=== PATIENT | female | born 1935 | race Hispanic/Latino ===

== ENCOUNTER 2019-10-30 12:13 | Inpatient (IN) | payer OTHER ==
[~2019-10-30] VITALS: Ht 165.1 cm; Wt 83.8 kg
[2019-10-30 14:10] LABS: BASOPHILS % (AUTO) 0.1 % (0.0-5.0); EOSINOPHILS % (AUTO) 0.4 % (0.0-8.0); HEMATOCRIT 35.2 % (36-48); LYMPHOCYTES % (AUTO) 12.3 % (21.0-51.0); MEAN CORPUSCULAR HEMOGLOBIN 29.5 pg (27.0-33.0); MEAN CORPUSCULAR HGB CONC 33.8 g/dL (32.0-36.0); MEAN CORPUSCULAR VOLUME 87.1 fL (79-99); MONOCYTES % (AUTO) 6.9 % (3.0-13.0); NEUTROPHILS % (AUTO) 79.7 % (40.0-77.0); PLATELET COUNT (AUTO) 277 K/uL (130-400); RED BLOOD CELL COUNT(AUTO) 4.04 MIL/uL (4.00-5.50); RED CELL DISTRIBUTION WIDTH 13.3 % (11.0-15.5); WHITE BLOOD COUNT (AUTO) 7.8 K/uL (4.8-10.8)
[2019-10-30 14:23] LABS: CREATININE 0.7 mg/dL (0.5-1.5)
[2019-10-30 14:28] LABS: ALBUMIN 3.1 g/dL (3.5-5.0); BILIRUBIN,TOTAL 0.4 mg/dL (0.2-1.0); TOTAL PROTEIN, SERUM 6.9 g/dL (6.0-8.3)
[2019-10-30 15:46] LABS: APPEARANCE,URINE Clear (CLEAR); BILIRUBIN,URINE Negative (NEGATIVE); COLOR,URINE Yellow (YELLOW); GLUCOSE, URINE (UA) Negative (NEGATIVE); KETONES,URINE Trace mg/dL (NEGATIVE); LEUKOCYTE ESTERASE ,URINE Moderate (NEGATIVE); NITRATE,URINE Negative (NEGATIVE); OCCULT BLOOD,URINE Negative (NEGATIVE); PROTEIN,URINE Negative (NEGATIVE)
[2019-10-30 16:00] LABS: RBC,URINE 0-1 /HPF (0-1)
[2019-10-30 16:01] LABS: BACTERIA,URINE Rare /HPF (None Seen); MUCUS,URINE Rare LPF (None Seen); SQUAMOUS EPITHELIAL CELL,UR Few /HPF (0-2)
[2019-10-30] MEDS ORDERED: CEFTRIAXONE SODIUM 1 GM ONE ×2 (16:39→19:42)
[2019-10-30] MEDS ORDERED: FAMOTIDINE/PF 20 MG/2 ML VIAL IV ONE (16:40)
[2019-10-30] MEDS ORDERED: ERGOCALCIFEROL (VITAMIN D2) 50,000 UNIT CAPSULE PO ONE (18:30)
[2019-10-30] MEDS: CEFTRIAXONE SODIUM 1 GM IVP SCH (18:30)
[2019-10-30] MEDS ORDERED: ERGOCALCIFEROL (VITAMIN D2) 50,000 UNIT CAPSULE ONE (19:12)
[2019-10-30] MEDS ORDERED: METHYLPREDNISOLONE SOD SUCC 40MG/ML 1ML ONE ×2 (19:12→20:00)
[2019-10-30] MEDS ORDERED: DOXYCYCLINE 100MG+NS 250ML 250 ML IV ONE (19:13)
[2019-10-30 19:46] LABS: HEMATOCRIT 33.4 % (36-48); LYMPHOCYTES % (AUTO) 20.3 % (21.0-51.0); MEAN CORPUSCULAR HEMOGLOBIN 29.2 pg (27.0-33.0); MEAN CORPUSCULAR HGB CONC 34.1 g/dL (32.0-36.0); MEAN CORPUSCULAR VOLUME 85.6 fL (79-99); MONOCYTES % (AUTO) 8.3 % (3.0-13.0); PLATELET COUNT (AUTO) 263 K/uL (130-400); RED CELL DISTRIBUTION WIDTH 13.2 % (11.0-15.5); WHITE BLOOD COUNT (AUTO) 5.2 K/uL (4.8-10.8)
[2019-10-30 19:58] LABS: HEMOGLOBIN A1C 7.7 % (4.0-6.0)
[2019-10-30 20:05] LABS: ALBUMIN 2.8 g/dL (3.5-5.0); BILIRUBIN,TOTAL 0.4 mg/dL (0.2-1.0); CREATININE 0.7 mg/dL (0.5-1.5); POTASSIUM 3.9 mmol/L (3.5-5.1); TOTAL PROTEIN, SERUM 6.3 g/dL (6.0-8.3)
[2019-10-30] MEDS: DOXYCYCLINE HYCLATE 100 MG TABLET PO SCH (21:00)
[2019-10-30] MEDS: METHYLPREDNISOLONE SOD SUCC 40MG/ML 1ML IVP SCH (21:00)
[2019-10-30 22:10] VITALS: BP 152/86
--- NOTE | 2019-10-30 22:10 | NUR ---
ADMISSION PT TRANS FROM ED VIA BED. PT A/A/OX1. PT REPEATEDLY STATES SHE NEEDS TO "GO TO THE HOSPITAL", WHEN REDIRECTED THAT SHE IS IN THE HOSPITAL SHE GETS AGITATED. PT VS STABLE AT THIS TIME, ON RA. NO DISTRESS OR C/O PAIN. PT ORIENTED TO CALL LIGHT- REINFORCEMENT NEEDED. CALL LIGHT LEFT IN REACH ON BED. BED ALARM ON. WILL CONT TO CLOSELY MONITOR PT.
--- NOTE | 2019-10-30 22:54 | NUR ---
CONSULT PAGED [facility]ED, DR. BARKSDALE IS THE SCHEDULED ONCALL PHYSICIAN. NO ANSWER AT THIS TIME, A VOICEMAIL WAS LEFT. PENDING CALL BACK.
--- NOTE | 2019-10-30 23:05 | NUR ---
UPDATED FAMILY CALLED TO UPDATE GABBI, PT'S SISTER AT [phone]. INFORMED GABBI THAT THE PT WAS IN ROOM 331 AND WAS GOING TO BE ADMITTED. WHEN ASKED ABOUT THE HOME MEDICATIONS, SHE WAS ONLY ABLE TO PROVIDE ME WITH THE NAME OF METFORMIN AND AZITHROMYCIN. SIMON ALEXANDRA IS THE PRIMARY PHYSICIAN. NO OTHER INFORMATION WAS PROVIDED AT THIS TIME.
[2019-10-30 23:57] VITALS: BP 155/108
[2019-10-31 03:20] VITALS: BP 158/100
[2019-10-31] MEDS ORDERED: LORAZEPAM 2 MG/ML 1 ML VIAL ONE (05:14)
[2019-10-31] MEDS ORDERED: LORAZEPAM 2 MG/ML 1 ML VIAL IM ONE (05:15)
[2019-10-31 06:12] LABS: BASOPHILS % (AUTO) 0.2 % (0.0-5.0); HEMATOCRIT 35.8 % (36-48); LYMPHOCYTES % (AUTO) 12.1 % (21.0-51.0); MEAN CORPUSCULAR HEMOGLOBIN 29.5 pg (27.0-33.0); MEAN CORPUSCULAR HGB CONC 34.6 g/dL (32.0-36.0); MONOCYTES % (AUTO) 2.1 % (3.0-13.0); PLATELET COUNT (AUTO) 304 K/uL (130-400); RED BLOOD CELL COUNT(AUTO) 4.21 MIL/uL (4.00-5.50); RED CELL DISTRIBUTION WIDTH 13.1 % (11.0-15.5); WHITE BLOOD COUNT (AUTO) 4.8 K/uL (4.8-10.8)
[2019-10-31] MEDS: CEFTRIAXONE SODIUM 1 GM IVP SCH ×2 (06:26→18:26)
[2019-10-31 08:00] VITALS: BP 168/78
[2019-10-31 08:40] LABS: LACTATE DEHYDROGENASE 282 U/L (81-234)
[2019-10-31] MEDS: METHYLPREDNISOLONE SOD SUCC 40MG/ML 1ML IVP SCH ×2 (08:53→13:53)
[2019-10-31] MEDS: ASCORBIC ACID 500 MG TAB PO SCH (08:53)
[2019-10-31] MEDS: DOXYCYCLINE HYCLATE 100 MG TABLET PO SCH ×2 (08:53→20:27)
[2019-10-31 12:00] VITALS: BP 159/73
[2019-10-31] MEDS: ZINC SULFATE 220 CAPSULE PO SCH (12:00)
[2019-10-31] MEDS ORDERED: CEFTRIAXONE SODIUM 1 GM IVP SCH (12:45)
[2019-10-31 13:01] LABS: HEMATOCRIT 40.7 % (36-48)
[2019-10-31 16:00] VITALS: BP 139/89
[2019-10-31] MEDS ORDERED: ENOXAPARIN SODIUM 30 MG/0.3 ML SQ SCH (17:00)
--- NOTE | 2019-10-31 17:29 | NUR ---
cm note call made to pts sister hailey aguilar [phone]. states pt resides at home with her, requires assist with her bath and adls. ambulates with walker very few steps, primarily chair bound. pending w/c ordered by per pcp. has provider 5hrs daily. states dc plan is back to home, but is open to snf level of care if md orders, has been at a facility before, but unable to recall name. Addendum: 10/31/19 at 1735 by RICHA ZHONG CM Amended: Links added.
[2019-10-31 20:00] VITALS: BP 158/84
[2019-10-31 20:36] LABS: HEMATOCRIT 35.7 % (36-48)
[2019-11-01] VITALS: BP 151/83
[2019-11-01 04:00] VITALS: BP 119/83
[2019-11-01 06:34] LABS: BASOPHILS % (AUTO) 0.1 % (0.0-5.0); EOSINOPHILS % (AUTO) 1.7 % (0.0-8.0); HEMATOCRIT 34.2 % (36-48); LYMPHOCYTES % (AUTO) 14.4 % (21.0-51.0); MEAN CORPUSCULAR HEMOGLOBIN 29.2 pg (27.0-33.0); MEAN CORPUSCULAR HGB CONC 34.2 g/dL (32.0-36.0); MEAN CORPUSCULAR VOLUME 85.3 fL (79-99); MONOCYTES % (AUTO) 7.6 % (3.0-13.0); NEUTROPHILS % (AUTO) 75.7 % (40.0-77.0); PLATELET COUNT (AUTO) 344 K/uL (130-400); RED BLOOD CELL COUNT(AUTO) 4.01 MIL/uL (4.00-5.50); RED CELL DISTRIBUTION WIDTH 13.1 % (11.0-15.5); WHITE BLOOD COUNT (AUTO) 8.4 K/uL (4.8-10.8)
[2019-11-01 06:59] LABS: LACTATE DEHYDROGENASE 228 U/L (81-234)
[2019-11-01 08:00] VITALS: BP 165/76
[2019-11-01] MEDS ORDERED: ENOXAPARIN SODIUM 30 MG/0.3 ML SQ SCH (09:00)
[2019-11-01] MEDS: DOXYCYCLINE HYCLATE 100 MG TABLET PO SCH ×2 (09:38→20:52)
[2019-11-01] MEDS: ASCORBIC ACID 500 MG TAB PO SCH (09:38)
[2019-11-01] MEDS: DEXAMETHASONE SOD PHOSPHATE 4 MG/ML 1ML VIAL IVP SCH (09:39)
[2019-11-01] MEDS: ENOXAPARIN SODIUM 40 MG/0.4 ML SYRINGE SQ SCH (09:39)
[2019-11-01 10:17] LABS: BASOPHILS % (AUTO) 0.1 % (0.0-5.0); HEMATOCRIT 35.2 % (36-48); LYMPHOCYTES % (AUTO) 14.6 % (21.0-51.0); MEAN CORPUSCULAR HEMOGLOBIN 29.1 pg (27.0-33.0); MEAN CORPUSCULAR HGB CONC 33.8 g/dL (32.0-36.0); MEAN CORPUSCULAR VOLUME 86.1 fL (79-99); MONOCYTES % (AUTO) 7.6 % (3.0-13.0); NEUTROPHILS % (AUTO) 77.2 % (40.0-77.0); PLATELET COUNT (AUTO) 353 K/uL (130-400); RED BLOOD CELL COUNT(AUTO) 4.09 MIL/uL (4.00-5.50); RED CELL DISTRIBUTION WIDTH 13.3 % (11.0-15.5); WHITE BLOOD COUNT (AUTO) 9.4 K/uL (4.8-10.8)
[2019-11-01 10:27] LABS: CREATININE 0.7 mg/dL (0.5-1.5); POTASSIUM 3.7 mmol/L (3.5-5.1)
[2019-11-01 10:33] LABS: BILIRUBIN,TOTAL 0.4 mg/dL (0.2-1.0); CRP QUANTITATIVE 24.4 mg/L (0.00-9.0); TOTAL PROTEIN, SERUM 6.8 g/dL (6.0-8.3)
[2019-11-01 11:00] VITALS: BP 175/70
[2019-11-01 12:44] LABS: HEMATOCRIT 35.9 % (36-48)
[2019-11-01] MEDS: ZINC SULFATE 220 CAPSULE PO SCH (12:53)
[2019-11-01 16:00] VITALS: BP 140/78
[2019-11-01] MEDS ORDERED: DEXTROSE 50%-WATER 50 ML DISP.SYRIN IV PRN (16:00)
[2019-11-01] MEDS ORDERED: GLUCAGON 1MG KIT 1 MG ML IM PRN (16:00)
[2019-11-01] MEDS: INSULIN HUMULIN R 100 UNIT/ML 3ML SQ SCH ×2 (16:44→20:52)
[2019-11-01 18:31] LABS: HEMATOCRIT 34.7 % (36-48)
[2019-11-01] MEDS: CEFTRIAXONE SODIUM 1 GM IVP SCH (18:44)
[2019-11-01 20:00] VITALS: BP 175/76
[2019-11-02] VITALS: BP 175/80
[2019-11-02] MEDS ORDERED: HALOPERIDOL LACTATE 5 MG/ML VIAL ONE (00:15)
[2019-11-02] MEDS: HALOPERIDOL LACTATE 5 MG/ML VIAL IM SCH (00:15)
--- NOTE | 2019-11-02 00:15 | NUR ---
Agitation Pt attempting to get out of bed several times. Bed alarm on and sitter present. Pt given reassurance and comforted. Pt stating she has to leave hospital and go home to cook. Pt has history of dementia and experiences episodes of confusion. Pt still attempting to get out of bed. and becoming more agitated. Placed call for service station operator hospitalist. Dr. Knowles called back, orders received to give pt Haldol 3mg IM x one dose.
[2019-11-02 03:46] VITALS: BP 169/70
--- NOTE | 2019-11-02 04:02 | NUR ---
Refused AM Labs Pt was agitated and refused to have blood drawn for ordered labs.
[2019-11-02] MEDS: INSULIN HUMULIN R 100 UNIT/ML 3ML SQ SCH ×4 (06:09→21:00)
[2019-11-02] MEDS: ASCORBIC ACID 500 MG TAB PO SCH (09:21)
[2019-11-02] MEDS: DEXAMETHASONE SOD PHOSPHATE 4 MG/ML 1ML VIAL IVP SCH (09:21)
[2019-11-02] MEDS: DOXYCYCLINE HYCLATE 100 MG TABLET PO SCH ×2 (09:21→20:52)
[2019-11-02] MEDS: ENOXAPARIN SODIUM 40 MG/0.4 ML SYRINGE SQ SCH ×2 (09:22→20:53)
[2019-11-02 09:27] LABS: BASOPHILS % (AUTO) 0.1 % (0.0-5.0); EOSINOPHILS % (AUTO) 1.7 % (0.0-8.0); HEMATOCRIT 36.7 % (36-48); LYMPHOCYTES % (AUTO) 12.8 % (21.0-51.0); MEAN CORPUSCULAR HEMOGLOBIN 28.9 pg (27.0-33.0); MEAN CORPUSCULAR HGB CONC 33.5 g/dL (32.0-36.0); MEAN CORPUSCULAR VOLUME 86.4 fL (79-99); MONOCYTES % (AUTO) 7.2 % (3.0-13.0); NEUTROPHILS % (AUTO) 77.9 % (40.0-77.0); PLATELET COUNT (AUTO) 382 K/uL (130-400); RED BLOOD CELL COUNT(AUTO) 4.25 MIL/uL (4.00-5.50); RED CELL DISTRIBUTION WIDTH 13.2 % (11.0-15.5); WHITE BLOOD COUNT (AUTO) 8.7 K/uL (4.8-10.8)
[2019-11-02 09:40] LABS: LACTATE DEHYDROGENASE 240 U/L (81-234)
[2019-11-02] MEDS: ZINC SULFATE 220 CAPSULE PO SCH (12:28)
[2019-11-02 12:29] VITALS: BP 163/110
--- NOTE | 2019-11-02 14:33 | NUR ---
RD NOTIFICATION - TRIGGER Pt admitted with positive COVID-19 Infection PNA. Dementia and DMII. Pt with 75gm CCD in place. Poor PO intake. Liquid/loose stools. BG 153. Zinc, Vit C in place. Recommend Continue 75gm CCD Recommend add Ensure Clear TID with meals RD to continue to monitor. Please notify as additional nutrition concerns arise. Thank you.
[2019-11-02 15:45] VITALS: BP 151/78
--- NOTE | 2019-11-02 16:33 | NUR ---
PATIENT AO TO SELF. PLEASANT CONFUSION WITH KNOWN HISTORY OF DEMENTIA. ABLE TO MAKE BASIC NEEDS KNOWN. RESPIRATIONS EVEN AND UNLABORED, ROOM AIR. ATTEMPTING TO GET OUT OF BED SEVERAL TIMES THROUGHOUT THIS SHIFT. VERY FORGETFUL AND REQUIRES FREQUENT REDIRECTION. REASSURANCE PROVIDED NEEDED AND REPOSITIONED OFTEN FOR COMFORT. BED ALARM IN USE AND FUNCTIONING PROPERLY. 1:1 SITTER. WILL CONTINUE TO MONITOR. SAFETY PRECAUTIONS IN PLACE.
[2019-11-02 18:20] VITALS: BP 112/59
[2019-11-02] MEDS: CEFTRIAXONE SODIUM 1 GM IVP SCH (18:53)
[2019-11-02 21:50] VITALS: BP 152/66
[2019-11-03] MEDS: HALOPERIDOL LACTATE 5 MG/ML VIAL IM SCH ×2 (00:15→23:48)
[2019-11-03 01:47] VITALS: BP 160/76
[2019-11-03 05:16] LABS: BASOPHILS % (AUTO) 0.1 % (0.0-5.0); EOSINOPHILS % (AUTO) 0.1 % (0.0-8.0); HEMATOCRIT 36.4 % (36-48); LYMPHOCYTES % (AUTO) 14.7 % (21.0-51.0); MEAN CORPUSCULAR HGB CONC 33.8 g/dL (32.0-36.0); MEAN CORPUSCULAR VOLUME 85.8 fL (79-99); MONOCYTES % (AUTO) 8.7 % (3.0-13.0); NEUTROPHILS % (AUTO) 75.8 % (40.0-77.0); PLATELET COUNT (AUTO) 388 K/uL (130-400); RED BLOOD CELL COUNT(AUTO) 4.24 MIL/uL (4.00-5.50); RED CELL DISTRIBUTION WIDTH 13.1 % (11.0-15.5); WHITE BLOOD COUNT (AUTO) 10.5 K/uL (4.8-10.8)
[2019-11-03 05:34] LABS: ALANINE AMINOTRANSFERASE 43 U/L (12-78); ALBUMIN 3.1 g/dL (3.5-5.0); ASPARTATE AMINOTRANSFERASE 45 U/L (10-37); BILIRUBIN,TOTAL 0.5 mg/dL (0.2-1.0); CARBON DIOXIDE 24 mmol/L (21-32); CHLORIDE 102 mmol/L (101-111); CREATININE 0.7 mg/dL (0.5-1.5); GLOMERULAR FILTR. RATE CALC 85 mL/min (>60); GLUCOSE,RANDOM 174 mg/dL (70-105); LACTATE DEHYDROGENASE 270 U/L (81-234); POTASSIUM 3.1 mmol/L (3.5-5.1); SODIUM SERUM 139 mmol/L (136-145); TOTAL PROTEIN, SERUM 6.8 g/dL (6.0-8.3); UREA NITROGEN, BLOOD 25 mg/dL (7-18)
[2019-11-03] MEDS: INSULIN HUMULIN R 100 UNIT/ML 3ML SQ SCH ×4 (05:50→21:00)
[2019-11-03 06:29] VITALS: BP 154/73
[2019-11-03] MEDS ORDERED: LIDOCAINE HCL-MPF 1% 2ML VIAL IV PRN (07:30)
[2019-11-03] MEDS ORDERED: POTASSIUM CHLORIDE 10% ELIXIR 20 MEQ/15 ML UDCUP PO PRN (07:30)
[2019-11-03] MEDS ORDERED: POTASSIUM CHLORIDE 20MEQ/100ML 100 ML IV PRN (07:30)
--- NOTE | 2019-11-03 08:22 | NUR ---
POTASSIUM LEVEL 3.1. POTASSIUM PROTOCOL INITIATED.
[2019-11-03] MEDS: DOXYCYCLINE HYCLATE 100 MG TABLET PO SCH ×2 (08:41→21:15)
[2019-11-03] MEDS: ASCORBIC ACID 500 MG TAB PO SCH (08:41)
[2019-11-03] MEDS: DEXAMETHASONE SOD PHOSPHATE 4 MG/ML 1ML VIAL IVP SCH (08:41)
[2019-11-03] MEDS: ENOXAPARIN SODIUM 40 MG/0.4 ML SYRINGE SQ SCH ×2 (08:43→21:15)
[2019-11-03] MEDS: POTASSIUM CHLORIDE 20 MEQ ERTAB PO PRN ×2 (08:46→17:06)
[2019-11-03 11:46] VITALS: BP 139/72
[2019-11-03] MEDS: ZINC SULFATE 220 CAPSULE PO SCH (11:55)
--- NOTE | 2019-11-03 15:00 | NUR ---
PATIENT AO TO SELF. PLEASANT CONFUSION WITH KNOWN HISTORY OF DEMENTIA. ABLE TO MAKE BASIC NEEDS KNOWN. RESPIRATIONS EVEN AND UNLABORED, ROOM AIR. CALM, COOPERATIVE THROUGH OUT THE DAY. BED ALARM IN USE AND FUNCTIONING PROPERLY. DR. KEANE ROUNDED. 1:1 SITTER DISCONTINUED. WILL CONTINUE TO MONITOR. SAFETY PRECAUTIONS IN PLACE.
[2019-11-03 16:00] VITALS: BP 138/79
[2019-11-03] MEDS: CEFTRIAXONE SODIUM 1 GM IVP SCH (18:03)
[2019-11-03 19:58] VITALS: BP 138/62
[2019-11-03 23:27] VITALS: BP 164/74
[2019-11-04] VITALS (7 sets, daily range): BP systolic 124–192; BP diastolic 49–93
[2019-11-04 04:54] LABS: BASOPHILS % (AUTO) 0.1 % (0.0-5.0); EOSINOPHILS % (AUTO) 0.1 % (0.0-8.0); HEMATOCRIT 37.8 % (36-48); LYMPHOCYTES % (AUTO) 18.6 % (21.0-51.0); MEAN CORPUSCULAR HEMOGLOBIN 28.9 pg (27.0-33.0); MEAN CORPUSCULAR HGB CONC 33.9 g/dL (32.0-36.0); MEAN CORPUSCULAR VOLUME 85.3 fL (79-99); MONOCYTES % (AUTO) 6.2 % (3.0-13.0); NEUTROPHILS % (AUTO) 74.3 % (40.0-77.0); PLATELET COUNT (AUTO) 396 K/uL (130-400); RED BLOOD CELL COUNT(AUTO) 4.43 MIL/uL (4.00-5.50); RED CELL DISTRIBUTION WIDTH 13.3 % (11.0-15.5)
[2019-11-04 05:04] LABS: ALANINE AMINOTRANSFERASE 55 U/L (12-78); ALBUMIN 3.1 g/dL (3.5-5.0); ASPARTATE AMINOTRANSFERASE 50 U/L (10-37); BILIRUBIN,TOTAL 0.5 mg/dL (0.2-1.0); CARBON DIOXIDE 26 mmol/L (21-32); CHLORIDE 105 mmol/L (101-111); CREATININE 0.7 mg/dL (0.5-1.5); GLOMERULAR FILTR. RATE CALC 85 mL/min (>60); GLUCOSE,RANDOM 162 mg/dL (70-105); LACTATE DEHYDROGENASE 264 U/L (81-234); POTASSIUM 3.4 mmol/L (3.5-5.1); SODIUM SERUM 142 mmol/L (136-145); TOTAL PROTEIN, SERUM 6.8 g/dL (6.0-8.3); UREA NITROGEN, BLOOD 32 mg/dL (7-18)
[2019-11-04] MEDS: INSULIN HUMULIN R 100 UNIT/ML 3ML SQ SCH ×4 (07:30→20:41)
--- NOTE | 2019-11-04 09:00 | NUR ---
PATIENT RESTING QUIETLY IN BED AT THIS TIME. EASILY AROUSED WITH VERBAL STIMULI AND SOFT TACTILE TOUCH. PLEASANTLY CONFUSED WITH KNOWN HISTORY OF DEMENTIA. RESPIRATIONS EVEN AND UNLABORED, ROOM AIR. ISABELA ROMAN ROUNDED. NO NEW ORDERS AT THIS TIME. BED ALARM IN USE AND FUNCTIONING PROPERLY. WILL CONTINUE TO MONITOR. SAFETY PRECAUTIONS IN PLACE.
[2019-11-04] MEDS: DOXYCYCLINE HYCLATE 100 MG TABLET PO SCH ×2 (09:04→20:09)
[2019-11-04] MEDS: ASCORBIC ACID 500 MG TAB PO SCH (09:04)
[2019-11-04] MEDS: DEXAMETHASONE SOD PHOSPHATE 4 MG/ML 1ML VIAL IVP SCH (09:05)
[2019-11-04] MEDS: ENOXAPARIN SODIUM 40 MG/0.4 ML SYRINGE SQ SCH ×2 (09:05→20:09)
[2019-11-04] MEDS: ZINC SULFATE 220 CAPSULE PO SCH (12:18)
[2019-11-04] MEDS: POTASSIUM CHLORIDE 20 MEQ ERTAB PO PRN (12:18)
[2019-11-04] MEDS: CEFTRIAXONE SODIUM 1 GM IVP SCH (17:51)
[2019-11-04] MEDS: ACETAMINOPHEN 325 MG TAB PO PRN (20:10)
[2019-11-05 03:17] VITALS: BP 147/69
[2019-11-05 05:13] LABS: EOSINOPHILS % (AUTO) 0.3 % (0.0-8.0); HEMATOCRIT 35.3 % (36-48); LYMPHOCYTES % (AUTO) 18.6 % (21.0-51.0); MEAN CORPUSCULAR HEMOGLOBIN 29.4 pg (27.0-33.0); MEAN CORPUSCULAR VOLUME 86.5 fL (79-99); MONOCYTES % (AUTO) 5.7 % (3.0-13.0); NEUTROPHILS % (AUTO) 74.9 % (40.0-77.0); PLATELET COUNT (AUTO) 364 K/uL (130-400); RED BLOOD CELL COUNT(AUTO) 4.08 MIL/uL (4.00-5.50); RED CELL DISTRIBUTION WIDTH 13.5 % (11.0-15.5); WHITE BLOOD COUNT (AUTO) 9.2 K/uL (4.8-10.8)
[2019-11-05 05:38] LABS: ALANINE AMINOTRANSFERASE 54 U/L (12-78); ALBUMIN 2.7 g/dL (3.5-5.0); ASPARTATE AMINOTRANSFERASE 39 U/L (10-37); BILIRUBIN,TOTAL 0.4 mg/dL (0.2-1.0); CARBON DIOXIDE 27 mmol/L (21-32); CHLORIDE 106 mmol/L (101-111); CREATININE 0.6 mg/dL (0.5-1.5); GLOMERULAR FILTR. RATE CALC 101 mL/min (>60); GLUCOSE,RANDOM 101 mg/dL (70-105); LACTATE DEHYDROGENASE 211 U/L (81-234); POTASSIUM 3.2 mmol/L (3.5-5.1); SODIUM SERUM 143 mmol/L (136-145); TOTAL PROTEIN, SERUM 6.1 g/dL (6.0-8.3); UREA NITROGEN, BLOOD 35 mg/dL (7-18)
[2019-11-05] MEDS: INSULIN HUMULIN R 100 UNIT/ML 3ML SQ SCH ×4 (06:40→20:09)
[2019-11-05 08:00] VITALS: BP 158/78
[2019-11-05] MEDS: ASCORBIC ACID 500 MG TAB PO SCH (08:01)
[2019-11-05] MEDS: DEXAMETHASONE SOD PHOSPHATE 4 MG/ML 1ML VIAL IVP SCH (08:01)
[2019-11-05] MEDS: DOXYCYCLINE HYCLATE 100 MG TABLET PO SCH ×2 (08:01→19:52)
[2019-11-05] MEDS: ENOXAPARIN SODIUM 40 MG/0.4 ML SYRINGE SQ SCH (08:02)
[2019-11-05] MEDS: POTASSIUM CHLORIDE 20 MEQ ERTAB PO PRN ×2 (09:55→11:46)
--- NOTE | 2019-11-05 11:12 | NUR ---
OUT OF BED TO CHAIR WITH MAX ASSIST PER PT. FALL PREVENTION EDUCATION PER PT WITH UNDERSTANDING VERBALIZED. CALL LIGHT AND PERSONAL ITEMS WITHIN REACH. WILL CONTINUE TO MONITOR CLOSELY.
[2019-11-05] MEDS: ZINC SULFATE 220 CAPSULE PO SCH (11:46)
[2019-11-05 12:42] VITALS: BP 154/80
[2019-11-05] MEDS: CEFTRIAXONE SODIUM 1 GM IVP SCH (17:14)
[2019-11-05 17:56] VITALS: BP 147/67
[2019-11-05 20:00] VITALS: BP 124/69
[2019-11-06 04:00] VITALS: BP 150/80
[2019-11-06 05:19] LABS: BASOPHILS % (AUTO) 0.1 % (0.0-5.0); EOSINOPHILS % (AUTO) 0.4 % (0.0-8.0); HEMATOCRIT 38.7 % (36-48); MEAN CORPUSCULAR HEMOGLOBIN 29.1 pg (27.0-33.0); MEAN CORPUSCULAR HGB CONC 33.6 g/dL (32.0-36.0); MEAN CORPUSCULAR VOLUME 86.6 fL (79-99); MONOCYTES % (AUTO) 5.5 % (3.0-13.0); NEUTROPHILS % (AUTO) 81.5 % (40.0-77.0); PLATELET COUNT (AUTO) 362 K/uL (130-400); RED BLOOD CELL COUNT(AUTO) 4.47 MIL/uL (4.00-5.50); RED CELL DISTRIBUTION WIDTH 13.6 % (11.0-15.5); WHITE BLOOD COUNT (AUTO) 14.1 K/uL (4.8-10.8)
[2019-11-06] MEDS: POTASSIUM CHLORIDE 20 MEQ ERTAB PO PRN (05:23)
[2019-11-06 05:53] LABS: ALBUMIN 3.1 g/dL (3.5-5.0); BILIRUBIN,TOTAL 0.6 mg/dL (0.2-1.0); CREATININE 0.6 mg/dL (0.5-1.5); CRP QUANTITATIVE 4.2 mg/L (0.00-9.0); POTASSIUM 3.8 mmol/L (3.5-5.1); TOTAL PROTEIN, SERUM 6.7 g/dL (6.0-8.3)
[2019-11-06] MEDS: INSULIN HUMULIN R 100 UNIT/ML 3ML SQ SCH ×4 (05:57→20:51)
[2019-11-06] MEDS: DEXAMETHASONE 4 MG TAB PO SCH (09:02)
[2019-11-06] MEDS: DOXYCYCLINE HYCLATE 100 MG TABLET PO SCH ×2 (09:02→20:52)
[2019-11-06] MEDS: ASCORBIC ACID 500 MG TAB PO SCH (09:02)
[2019-11-06] MEDS: ENOXAPARIN SODIUM 40 MG/0.4 ML SYRINGE SQ SCH (09:03)
--- NOTE | 2019-11-06 10:49 | NUR ---
1050 Patient not eating very much however blood sugar slightly elevated will hold insulin to avoid hypoglycemia.
[2019-11-06] MEDS: ZINC SULFATE 220 CAPSULE PO SCH (11:23)
[2019-11-06 12:54] VITALS: BP 159/84
[2019-11-06 16:00] VITALS: BP 154/86
[2019-11-06] MEDS: CEFTRIAXONE SODIUM 1 GM IVP SCH (17:16)
[2019-11-06 18:40] VITALS: BP 154/86
[2019-11-06 21:17] VITALS: BP 158/94
[2019-11-07 01:15] VITALS: BP 136/78
[2019-11-07 04:29] LABS: BASOPHILS % (AUTO) 0.2 % (0.0-5.0); EOSINOPHILS % (AUTO) 0.7 % (0.0-8.0); HEMATOCRIT 35.7 % (36-48); LYMPHOCYTES % (AUTO) 16.6 % (21.0-51.0); MEAN CORPUSCULAR HEMOGLOBIN 29.2 pg (27.0-33.0); MEAN CORPUSCULAR HGB CONC 33.6 g/dL (32.0-36.0); MEAN CORPUSCULAR VOLUME 86.9 fL (79-99); MONOCYTES % (AUTO) 5.8 % (3.0-13.0); NEUTROPHILS % (AUTO) 76.3 % (40.0-77.0); PLATELET COUNT (AUTO) 319 K/uL (130-400); RED BLOOD CELL COUNT(AUTO) 4.11 MIL/uL (4.00-5.50); RED CELL DISTRIBUTION WIDTH 13.8 % (11.0-15.5); WHITE BLOOD COUNT (AUTO) 11.1 K/uL (4.8-10.8)
[2019-11-07 04:50] LABS: ALBUMIN 2.6 g/dL (3.5-5.0); BILIRUBIN,TOTAL 0.6 mg/dL (0.2-1.0); CREATININE 0.7 mg/dL (0.5-1.5); CRP QUANTITATIVE 4.8 mg/L (0.00-9.0); POTASSIUM 3.6 mmol/L (3.5-5.1); TOTAL PROTEIN, SERUM 5.8 g/dL (6.0-8.3)
[2019-11-07] MEDS: INSULIN HUMULIN R 100 UNIT/ML 3ML SQ SCH ×4 (05:53→20:43)
[2019-11-07 06:15] VITALS: BP 96/77
[2019-11-07 08:00] VITALS: BP 131/92
[2019-11-07] MEDS: DOXYCYCLINE HYCLATE 100 MG TABLET PO SCH ×2 (09:09→20:43)
[2019-11-07] MEDS: ENOXAPARIN SODIUM 40 MG/0.4 ML SYRINGE SQ SCH (09:09)
[2019-11-07] MEDS: DEXAMETHASONE 4 MG TAB PO SCH (09:09)
[2019-11-07] MEDS: ASCORBIC ACID 500 MG TAB PO SCH (09:09)
[2019-11-07 11:05] VITALS: BP 129/55
[2019-11-07] MEDS: ZINC SULFATE 220 CAPSULE PO SCH (12:08)
[2019-11-07 15:59] VITALS: BP 123/66
--- NOTE | 2019-11-07 17:00 | NUR ---
cm note spoke to pt's sister hailey aguilar, and discussed order for snf for rehab, she state she will have to discuss with pt's provider who is also niece angelina wei, states she will discuss with her and let cm know. informed of in network snfs, will followup.
[2019-11-07] MEDS: CEFTRIAXONE SODIUM 1 GM IVP SCH (18:09)
[2019-11-07 23:45] VITALS: BP 149/69
[2019-11-08 06:10] LABS: BASOPHILS % (AUTO) 0.1 % (0.0-5.0); EOSINOPHILS % (AUTO) 0.9 % (0.0-8.0); HEMATOCRIT 39.6 % (36-48); LYMPHOCYTES % (AUTO) 22.2 % (21.0-51.0); MEAN CORPUSCULAR HEMOGLOBIN 29.2 pg (27.0-33.0); MEAN CORPUSCULAR HGB CONC 33.6 g/dL (32.0-36.0); MEAN CORPUSCULAR VOLUME 86.8 fL (79-99); MONOCYTES % (AUTO) 6.2 % (3.0-13.0); NEUTROPHILS % (AUTO) 70.1 % (40.0-77.0); PLATELET COUNT (AUTO) 346 K/uL (130-400); RED BLOOD CELL COUNT(AUTO) 4.56 MIL/uL (4.00-5.50); RED CELL DISTRIBUTION WIDTH 13.7 % (11.0-15.5); WHITE BLOOD COUNT (AUTO) 11.3 K/uL (4.8-10.8)
[2019-11-08] MEDS: INSULIN HUMULIN R 100 UNIT/ML 3ML SQ SCH ×4 (06:22→20:20)
[2019-11-08 06:28] VITALS: BP 136/80
[2019-11-08 06:44] LABS: ALBUMIN 3.1 g/dL (3.5-5.0); BILIRUBIN,TOTAL 0.8 mg/dL (0.2-1.0); CREATININE 0.8 mg/dL (0.5-1.5); CRP QUANTITATIVE 5.3 mg/L (0.00-9.0); POTASSIUM 3.2 mmol/L (3.5-5.1); TOTAL PROTEIN, SERUM 6.7 g/dL (6.0-8.3)
[2019-11-08 08:00] VITALS: BP 144/76
[2019-11-08] MEDS: DOXYCYCLINE HYCLATE 100 MG TABLET PO SCH ×2 (08:21→20:20)
[2019-11-08] MEDS: ASCORBIC ACID 500 MG TAB PO SCH (08:21)
[2019-11-08] MEDS: DEXAMETHASONE 4 MG TAB PO SCH (08:21)
[2019-11-08] MEDS: ENOXAPARIN SODIUM 40 MG/0.4 ML SYRINGE SQ SCH (08:22)
[2019-11-08 12:00] VITALS: BP 132/73
[2019-11-08] MEDS: ZINC SULFATE 220 CAPSULE PO SCH (12:42)
--- NOTE | 2019-11-08 13:53 | NUR ---
CM NOTE/SNF VS HOME FOLLOW UP CALL PLACED TO JUAN CARLOS JEFFERSON, SIBLING. PER SIBLING, PLACED ME ON SPEAKER SO THAT GABBI SHARPE, PROVIDER AND NIECE OF PATIENT THAT IS INVOLVED IN CARE, CAN HEAR CONVERSATION. FOLLOW UP DISCUSSION INITIATED FOR SNF VS HOME. PER SIBLING, DECLINING SNF AT THE MOMENT AND WOULD LIKE TO BRING PATIENT HOME AND FOLLOW UP WITH PCP FOR HOME HEALTH FOR PT REFERRAL INSTEAD OF SNF. PAGED MAJ. ROMAN ADMINISTRATIVE ASSISTANT FRONT DESK TO RELAY INFORMATION AND FAMILY DECISION, PENDING CALL BACK. PLACED CALL TO PRIMARY NURSE, ZEV CHRIS, PENDING CALL BACK TO INFORM OF CONVERSATION. PENDING DISCHARGE HOME ONCE CLEARED VIA EMS, EMS FORMS FLAGGED IN CHART.
--- NOTE | 2019-11-08 15:55 | NUR ---
Call out to MD through answering service for HR of 140s and low blood potassium. Baylee MAR called back unit, pt to receive potassium
[2019-11-08 16:00] VITALS: BP 136/79
[2019-11-08] MEDS ORDERED: POTASSIUM CHLORIDE 10% ELIXIR 20 MEQ/15 ML UDCUP PO SCH (16:00)
[2019-11-08] MEDS: CEFTRIAXONE SODIUM 1 GM IVP SCH (18:45)
--- NOTE | 2019-11-08 20:00 | NUR ---
BG 67 PT DENIES ANY SYMPTOMS OF HYPOGLYCEMIA, NO INSULIN COVERAGE NEEDED. PT GIVEN 4 OZ OF APPLE JUICE AND 2 VIOLETTE CRACKERS. PT DECLINED MORE JUICE OR FOOD.
[2019-11-08 20:35] VITALS: BP 124/87
[2019-11-09 00:38] VITALS: BP 111/78
[2019-11-09 05:45] VITALS: BP 138/81
[2019-11-09] MEDS: INSULIN HUMULIN R 100 UNIT/ML 3ML SQ SCH ×4 (06:04→21:21)
[2019-11-09 08:30] VITALS: BP 130/72
[2019-11-09] MEDS: ZINC SULFATE 220 CAPSULE PO SCH (08:58)
[2019-11-09] MEDS: ENOXAPARIN SODIUM 40 MG/0.4 ML SYRINGE SQ SCH (08:59)
[2019-11-09] MEDS: ASCORBIC ACID 500 MG TAB PO SCH (08:59)
[2019-11-09] MEDS: DEXAMETHASONE 4 MG TAB PO SCH (09:00)
[2019-11-09] MEDS: DOXYCYCLINE HYCLATE 100 MG TABLET PO SCH (09:01)
[2019-11-09] MEDS ORDERED: METOPROLOL TARTRATE 1 MG/ML 5ML VIAL IV SCH (10:00)
[2019-11-09 10:39] LABS: HEMATOCRIT 37.7 % (36-48); MEAN CORPUSCULAR HEMOGLOBIN 29.4 pg (27.0-33.0); MEAN CORPUSCULAR HGB CONC 33.2 g/dL (32.0-36.0); MEAN CORPUSCULAR VOLUME 88.7 fL (79-99); RED BLOOD CELL COUNT(AUTO) 4.25 MIL/uL (4.00-5.50); RED CELL DISTRIBUTION WIDTH 14.3 % (11.0-15.5); WHITE BLOOD COUNT (AUTO) 11.4 K/uL (4.8-10.8)
[2019-11-09 10:50] LABS: CARBON DIOXIDE 23 mmol/L (21-32); CHLORIDE 103 mmol/L (101-111); CREATININE 0.9 mg/dL (0.5-1.5); GLOMERULAR FILTR. RATE CALC 63 mL/min (>60); GLUCOSE,RANDOM 393 mg/dL (70-105); POTASSIUM 3.6 mmol/L (3.5-5.1); SODIUM SERUM 137 mmol/L (136-145); UREA NITROGEN, BLOOD 34 mg/dL (7-18)
[2019-11-09 11:01] LABS: ALANINE AMINOTRANSFERASE 50 U/L (12-78); ALBUMIN 2.7 g/dL (3.5-5.0); ASPARTATE AMINOTRANSFERASE 29 U/L (10-37); BILIRUBIN,TOTAL 0.8 mg/dL (0.2-1.0); CREATINE KINASE, TOTAL 65 U/L (21-232); MYOGLOBIN 129 ng/mL (10-92); TROPONIN I < 0.04 ng/mL (0.00-0.06)
[2019-11-09 16:30] VITALS: BP 115/68
[2019-11-09] MEDS: CEFTRIAXONE SODIUM 1 GM IVP SCH (18:44)
[2019-11-09 20:40] VITALS: BP 140/63
[2019-11-09] MEDS: METOPROLOL TARTRATE 25 MG TAB PO SCH (21:21)
[2019-11-10 00:10] VITALS: BP 140/66
--- NOTE | 2019-11-10 05:55 | NUR ---
Removed PIV Pt pulled out PIV from right hand, no s/s of swelling or inflammation. Catheter tip intact. Placed another PIV 20g to Right hand, flushed well with good blood return, secured IV in place, pt tolerated well.
[2019-11-10 06:16] VITALS: BP 150/74
[2019-11-10] MEDS: INSULIN HUMULIN R 100 UNIT/ML 3ML SQ SCH ×4 (06:37→22:27)
[2019-11-10] MEDS: ASCORBIC ACID 500 MG TAB PO SCH (08:32)
[2019-11-10] MEDS: ENOXAPARIN SODIUM 40 MG/0.4 ML SYRINGE SQ SCH (08:33)
[2019-11-10] MEDS: DEXAMETHASONE 4 MG TAB PO SCH (08:33)
[2019-11-10] MEDS: METOPROLOL TARTRATE 25 MG TAB PO SCH ×2 (08:33→21:48)
[2019-11-10 08:59] VITALS: BP 137/72
--- NOTE | 2019-11-10 11:04 | NUR ---
Attempted to call salesperson sewing machines Adriana to inform of discharge. will re attempt a call back later
--- NOTE | 2019-11-10 11:13 | NUR ---
and made aware of discharge
[2019-11-10 11:52] VITALS: BP 148/68
[2019-11-10 12:01] LABS: BASOPHILS % (AUTO) 0.2 % (0.0-5.0); EOSINOPHILS % (AUTO) 0.2 % (0.0-8.0); HEMATOCRIT 37.4 % (36-48); LYMPHOCYTES % (AUTO) 7.8 % (21.0-51.0); MEAN CORPUSCULAR HGB CONC 33.2 g/dL (32.0-36.0); MEAN CORPUSCULAR VOLUME 87.6 fL (79-99); MONOCYTES % (AUTO) 2.2 % (3.0-13.0); NEUTROPHILS % (AUTO) 89.1 % (40.0-77.0); PLATELET COUNT (AUTO) 264 K/uL (130-400); RED BLOOD CELL COUNT(AUTO) 4.27 MIL/uL (4.00-5.50); RED CELL DISTRIBUTION WIDTH 14.3 % (11.0-15.5)
[2019-11-10 12:16] LABS: CREATININE 0.7 mg/dL (0.5-1.5); POTASSIUM 3.8 mmol/L (3.5-5.1)
[2019-11-10 12:21] LABS: ALBUMIN 2.9 g/dL (3.5-5.0); BILIRUBIN,TOTAL 0.8 mg/dL (0.2-1.0); TOTAL PROTEIN, SERUM 6.1 g/dL (6.0-8.3)
[2019-11-10] MEDS: ZINC SULFATE 220 CAPSULE PO SCH (12:36)
--- NOTE | 2019-11-10 14:34 | NUR ---
Pt noted to be agiated and attempting to climb out of bed. Spoke to DRAMA CRITIC ELI, order for Ativan 1mg IVP for agitaion one time only.
[2019-11-10] MEDS ORDERED: LORAZEPAM 2 MG/ML 1 ML VIAL IVP ONE (15:45)
[2019-11-10] MEDS ORDERED: IOHEXOL 350 MG/ML 100ML INFUS..BTL IV ONE (16:33)
[2019-11-10 16:36] VITALS: BP 111/53
[2019-11-10 22:10] VITALS: BP 105/58
[2019-11-11] VITALS (7 sets, daily range): BP systolic 112–146; BP diastolic 57–82
[2019-11-11] MEDS: INSULIN HUMULIN R 100 UNIT/ML 3ML SQ SCH ×4 (06:46→22:30)
[2019-11-11 09:07] LABS: BASOPHILS % (AUTO) 0.1 % (0.0-5.0); EOSINOPHILS % (AUTO) 0.6 % (0.0-8.0); HEMATOCRIT 36.8 % (36-48); LYMPHOCYTES % (AUTO) 15.8 % (21.0-51.0); MEAN CORPUSCULAR HEMOGLOBIN 29.8 pg (27.0-33.0); MEAN CORPUSCULAR HGB CONC 33.7 g/dL (32.0-36.0); MEAN CORPUSCULAR VOLUME 88.5 fL (79-99); MONOCYTES % (AUTO) 6.4 % (3.0-13.0); NEUTROPHILS % (AUTO) 76.6 % (40.0-77.0); PLATELET COUNT (AUTO) 245 K/uL (130-400); RED BLOOD CELL COUNT(AUTO) 4.16 MIL/uL (4.00-5.50); RED CELL DISTRIBUTION WIDTH 14.3 % (11.0-15.5); WHITE BLOOD COUNT (AUTO) 15.1 K/uL (4.8-10.8)
[2019-11-11] MEDS: METOPROLOL TARTRATE 25 MG TAB PO SCH ×2 (09:07→22:16)
[2019-11-11] MEDS: DEXAMETHASONE 4 MG TAB PO SCH (09:07)
[2019-11-11] MEDS: ENOXAPARIN SODIUM 40 MG/0.4 ML SYRINGE SQ SCH (09:08)
[2019-11-11] MEDS: ASCORBIC ACID 500 MG TAB PO SCH (09:08)
[2019-11-11 09:28] LABS: CREATININE 0.9 mg/dL (0.5-1.5); POTASSIUM 3.6 mmol/L (3.5-5.1)
[2019-11-11 09:32] LABS: CRP QUANTITATIVE 5.4 mg/L (0.00-9.0)
[2019-11-11] MEDS: ZINC SULFATE 220 CAPSULE PO SCH (12:00)
[2019-11-11] MEDS: POTASSIUM CHLORIDE 20 MEQ ERTAB PO PRN (14:29)
[2019-11-11] MEDS: ACETAMINOPHEN 325 MG TAB PO PRN (16:05)
--- NOTE | 2019-11-11 18:11 | NUR ---
Pt alert and orientate to self. confuse to situation ad place. remain restless, multiple attempt to pull lines and climb out of bed. pt maintained on constant observation. bed alarm activated for safety. pt s/p ct scan of the brain, wrapper caser consulted for d/c planning.
[2019-11-12 03:50] VITALS: BP 117/59
[2019-11-12 05:43] LABS: BASOPHILS % (AUTO) 0.1 % (0.0-5.0); EOSINOPHILS % (AUTO) 0.1 % (0.0-8.0); HEMATOCRIT 35.4 % (36-48); LYMPHOCYTES % (AUTO) 13.5 % (21.0-51.0); MEAN CORPUSCULAR HEMOGLOBIN 29.1 pg (27.0-33.0); MEAN CORPUSCULAR HGB CONC 33.9 g/dL (32.0-36.0); MEAN CORPUSCULAR VOLUME 85.9 fL (79-99); MONOCYTES % (AUTO) 6.7 % (3.0-13.0); NEUTROPHILS % (AUTO) 78.9 % (40.0-77.0); PLATELET COUNT (AUTO) 248 K/uL (130-400); RED BLOOD CELL COUNT(AUTO) 4.12 MIL/uL (4.00-5.50); RED CELL DISTRIBUTION WIDTH 14.1 % (11.0-15.5); WHITE BLOOD COUNT (AUTO) 16.9 K/uL (4.8-10.8)
[2019-11-12 06:25] LABS: CARBON DIOXIDE 25 mmol/L (21-32); CHLORIDE 109 mmol/L (101-111); CREATININE 0.8 mg/dL (0.5-1.5); GLOMERULAR FILTR. RATE CALC 72 mL/min (>60); GLUCOSE,RANDOM 108 mg/dL (70-105); POTASSIUM 3.1 mmol/L (3.5-5.1); SODIUM SERUM 142 mmol/L (136-145); THYROID STIMULATING HORMONE 1.06 uIU/mL (0.36-3.74); UREA NITROGEN, BLOOD 38 mg/dL (7-18)
[2019-11-12] MEDS: INSULIN HUMULIN R 100 UNIT/ML 3ML SQ SCH ×4 (06:58→20:20)
[2019-11-12 08:00] VITALS: BP 126/94
[2019-11-12] MEDS: ASCORBIC ACID 500 MG TAB PO SCH (09:05)
[2019-11-12] MEDS: METOPROLOL TARTRATE 25 MG TAB PO SCH ×2 (09:05→20:20)
[2019-11-12] MEDS: DEXAMETHASONE 4 MG TAB PO SCH (09:05)
[2019-11-12] MEDS: ENOXAPARIN SODIUM 40 MG/0.4 ML SYRINGE SQ SCH (09:06)
--- NOTE | 2019-11-12 09:42 | NUR ---
CM NOTE/DCP WITH JUAN CARLOS JEFFERSON CALL PLACED TO SIBLING, JUAN CARLOS JEFFERSON [phone]. PER SIBLING, WANTS TO WAIT FOR INPUT FROM GABBI SHARPE, NIECE AND PROVIDER OF PATIENT. SNF OPTIONS GIVEN IN NETWORK. PER SIBLING, HAS BEEN AT SNF BEFORE FOR 21 DAYS X2 AND WANTS TO KNOW IF INSURANCE WILL APPROVE. THIS CM TO FOLLOW UP WITH [facility] TO VERIFY SNF COVERAGE, DAYS AND IF COPAY REQUIRED. WILL CALL SIBLING, JUAN CARLOS JEFFERSON, WHEN INFO OBTAINED.
[2019-11-12] MEDS: POTASSIUM CHLORIDE 20 MEQ ERTAB PO PRN ×3 (10:30→17:11)
[2019-11-12 11:00] VITALS: BP 135/93
[2019-11-12] MEDS: ZINC SULFATE 220 CAPSULE PO SCH (12:03)
--- NOTE | 2019-11-12 12:19 | NUR ---
CM NOTE/PENDING SAMMY FOR SNF CALLED PLACED TO SIBLING, JUAN CARLOS JEFFERSON, TO SEE IF DCP HAS BEEN DISCUSSED WITH FAMILY. PER SIBLING, STILL PENDING DISCUSSION. INFORMED PER INSURANCE, HAS SNF DAYS AND COVERED BY INSURANCE. PER SIBLING, WILL DISCUSS WITH FAMILY. CONVERSATION WENT ON, SHE MENTIONED THAT SHE WOULD LIKE TO BRING PATIENT HOME INSTEAD OF SNF BUT UNSURE IF SHE CAN MANAGE HER AT HOME D/T INCREASE CONFUSION BUT WILL DISCUSS THIS WITH FAMILY AND PROVIDER WHO IS ALSO RELATED TO PATIENT. CM TO FOLLOW UP FOR SNF SAMMY, PATIENT STILL AAOX1 AND HAS 1:1 SITTER.
[2019-11-12 16:00] VITALS: BP 126/79
[2019-11-12 19:30] VITALS: BP 124/78
[2019-11-13] VITALS (7 sets, daily range): BP systolic 122–139; BP diastolic 54–74
[2019-11-13] MEDS: INSULIN HUMULIN R 100 UNIT/ML 3ML SQ SCH ×2 (04:59→12:10)
[2019-11-13] MEDS: DEXAMETHASONE 4 MG TAB PO SCH (08:29)
[2019-11-13] MEDS: ENOXAPARIN SODIUM 40 MG/0.4 ML SYRINGE SQ SCH (08:30)
[2019-11-13] MEDS: METOPROLOL TARTRATE 25 MG TAB PO SCH ×2 (08:30→21:32)
[2019-11-13] MEDS: ASCORBIC ACID 500 MG TAB PO SCH (08:30)
[2019-11-13] MEDS: ZINC SULFATE 220 CAPSULE PO SCH (12:41)
[2019-11-13 14:38] LABS: CREATININE 0.8 mg/dL (0.5-1.5); POTASSIUM 4.3 mmol/L (3.5-5.1)
[2019-11-13] MEDS: INSULIN LISPRO 100 UNIT/ML 3ML SQ SCH ×3 (16:44→22:33)
[2019-11-13] MEDS: INSULIN GLARGINE 100 UNITS/ML 10 ML VIAL SQ SCH (22:31)
[2019-11-14 03:00] VITALS: BP 100/53
[2019-11-14] MEDS: INSULIN LISPRO 100 UNIT/ML 3ML SQ SCH ×7 (05:55→20:21)
[2019-11-14 06:02] LABS: BASOPHILS % (AUTO) 0.1 % (0.0-5.0); EOSINOPHILS % (AUTO) 0.9 % (0.0-8.0); HEMATOCRIT 36.3 % (36-48); LYMPHOCYTES % (AUTO) 18.6 % (21.0-51.0); MEAN CORPUSCULAR HEMOGLOBIN 29.3 pg (27.0-33.0); MEAN CORPUSCULAR HGB CONC 33.1 g/dL (32.0-36.0); MEAN CORPUSCULAR VOLUME 88.8 fL (79-99); MONOCYTES % (AUTO) 4.5 % (3.0-13.0); NEUTROPHILS % (AUTO) 75.2 % (40.0-77.0); PLATELET COUNT (AUTO) 223 K/uL (130-400); RED BLOOD CELL COUNT(AUTO) 4.09 MIL/uL (4.00-5.50); RED CELL DISTRIBUTION WIDTH 14.7 % (11.0-15.5); WHITE BLOOD COUNT (AUTO) 14.1 K/uL (4.8-10.8)
[2019-11-14 06:43] LABS: ALANINE AMINOTRANSFERASE 33 U/L (12-78); ALBUMIN 2.7 g/dL (3.5-5.0); ASPARTATE AMINOTRANSFERASE 19 U/L (10-37); BILIRUBIN,TOTAL 0.5 mg/dL (0.2-1.0); CARBON DIOXIDE 26 mmol/L (21-32); CHLORIDE 111 mmol/L (101-111); CREATININE 0.7 mg/dL (0.5-1.5); GLOMERULAR FILTR. RATE CALC 85 mL/min (>60); GLUCOSE,RANDOM 169 mg/dL (70-105); LACTATE DEHYDROGENASE 228 U/L (81-234); POTASSIUM 4.3 mmol/L (3.5-5.1); SODIUM SERUM 146 mmol/L (136-145); TOTAL PROTEIN, SERUM 5.9 g/dL (6.0-8.3); UREA NITROGEN, BLOOD 31 mg/dL (7-18)
[2019-11-14 08:00] VITALS: BP 125/62
[2019-11-14] MEDS: ASCORBIC ACID 500 MG TAB PO SCH (08:33)
[2019-11-14] MEDS: DEXAMETHASONE 4 MG TAB PO SCH (08:33)
[2019-11-14] MEDS: METOPROLOL TARTRATE 25 MG TAB PO SCH ×2 (08:33→20:35)
[2019-11-14] MEDS: ENOXAPARIN SODIUM 40 MG/0.4 ML SYRINGE SQ SCH (08:34)
[2019-11-14 11:00] VITALS: BP 153/64
[2019-11-14] MEDS: ZINC SULFATE 220 CAPSULE PO SCH (12:08)
[2019-11-14 19:45] VITALS: BP 116/69
[2019-11-14] MEDS: INSULIN GLARGINE 100 UNITS/ML 10 ML VIAL SQ SCH (20:32)
[2019-11-14 23:30] VITALS: BP 121/58
[2019-11-15 04:15] VITALS: BP 137/67
[2019-11-15] MEDS: INSULIN LISPRO 100 UNIT/ML 3ML SQ SCH ×7 (06:03→20:43)
[2019-11-15] MEDS: ASCORBIC ACID 500 MG TAB PO SCH (08:00)
[2019-11-15] MEDS: METOPROLOL TARTRATE 25 MG TAB PO SCH ×2 (08:00→20:40)
[2019-11-15] MEDS: DEXAMETHASONE 4 MG TAB PO SCH (08:01)
[2019-11-15] MEDS: ENOXAPARIN SODIUM 40 MG/0.4 ML SYRINGE SQ SCH (08:02)
[2019-11-15 09:08] VITALS: BP 133/62
[2019-11-15 12:00] VITALS: BP 107/62
[2019-11-15] MEDS: ZINC SULFATE 220 CAPSULE PO SCH (12:00)
--- NOTE | 2019-11-15 14:50 | NUR ---
DARWIN PLAN SPOKE TO NIECE AND TO SISTER OVER THE PHONE. SAID THEY WOULD LIKE PATIENT TO RETURN HOME. UNDERSTOOD THAT PATIENT DID NOT COOPERATE WITH PHYSICAL THERAPY. SAID OKAY NO TO SNF. LET KNOW. ASKED FOR AMBULANCE TRANSFER. Addendum: 11/15/19 at 1452 by CAMILO GERMAN RN CM Amended: Links added.
[2019-11-15] MEDS ORDERED: DEXA6TAB PO (17:48)
[2019-11-15] MEDS ORDERED: METO25 PO (17:48)
[2019-11-15] MEDS ORDERED: HUM100IN SQ (17:48)
[2019-11-15] MEDS ORDERED: APIX2.5T PO (17:48)
[2019-11-15 18:49] VITALS: BP 112/58
[2019-11-15 19:50] VITALS: BP 152/76
[2019-11-15] MEDS: INSULIN GLARGINE 100 UNITS/ML 10 ML VIAL SQ SCH (20:43)
--- NOTE | 2019-11-15 21:00 | NUR ---
Pt Discharge Pt being disharged home via EMS transport. Pt a/ox2, vitals stable, resp even and unlabored on RA. removed PIV from RAC and RH, catheter tip intact, no redness, swelling or inflammation noted. Pt stable, NAD noted. Report given to EMT and care of pt transferred.
--- NOTE | 2019-11-16 12:30 | NUR ---
DC PLAN PATIENT DISCHARGED HOME AFTER HOURS. PATIENT SENT VIA EMS. FORMS SENT TO [facility] 11/16/2019. WHEN I HAD TALKED TO SISTER ON 11/15/2019 SAID THAT SHE WANTED PATIENT TO GO VIA EMS. SAID NOT ABLE TO PICK PATIENT UP. Addendum: 11/16/19 at 1232 by CAMILO GERMAN RN CM Amended: Links added.
== END 2019-11-15 21:00 | disposition home or self-care (01) | DRG 177 ==
LOC: EDBD 12:13 → EDH 12:13 → EDHIP 18:26 → 3AH 21:33 → 4AH 10-31 08:13 → 4DH 11-10 18:50 → 2DH 11-12 11:09
PROVIDERS: ADMIT Hospitalist; ATTEND Hospitalist
DX: U07.1 COVID-19 (principal); J12.89 Other viral pneumonia; J96.01 Acute respiratory failure with hypoxia; N39.0 Urinary tract infection, site not specified; E44.1 Mild protein-calorie malnutrition; K92.2 Gastrointestinal hemorrhage, unspecified; E66.9 Obesity, unspecified; Z68.31 Body mass index [BMI] 31.0-31.9, adult; F03.90 Unspecified dementia, unspecified severity, without behavioral disturbance, psychotic disturbance, mood disturbance, and anxiety; E11.9 Type 2 diabetes mellitus without complications; I10 Essential (primary) hypertension; Z79.899 Other long term (current) drug therapy; Z79.01 Long term (current) use of anticoagulants
CPT/HCPCS: 36415; 70450; 71045; 71275; 80048; 80053; 81001; 82270; 82550; 82607; 82728; 82948; 83036; 83615; 83690; 83874; 84132; 84145; 84443; 84484; 85014; 85018; 85025; 85027; 85378; 86140; 86592; 86850; 86900; 86901; 87040; 87088; 87426; 93005; 93306; 93356; 97039; G0378; J0696; J1100; J1630; J1650; J1815; J2060; J2920; J3490; J8540; Q9967

== ENCOUNTER 2021-01-27 19:06 | Emergency (ER) | payer MEDICARE ==
[~2021-01-27] VITALS: Ht 154.9 cm; Wt 58.1 kg
[~2021-01-27 19:06] MED LIST: APIX2.5T PO; DEXA6TAB PO; HUM100IN SQ; METO25 PO
[2021-01-27 19:58] LABS: BASOPHILS % (AUTO) 0.4 % (0.0-5.0); EOSINOPHILS % (AUTO) 3.4 % (0.0-8.0); HEMATOCRIT 34.7 % (36-48); LYMPHOCYTES % (AUTO) 15.9 % (21.0-51.0); MEAN CORPUSCULAR HEMOGLOBIN 30.1 pg (27.0-33.0); MEAN CORPUSCULAR HGB CONC 33.1 g/dL (32.0-36.0); MEAN CORPUSCULAR VOLUME 90.8 fL (79-99); MONOCYTES % (AUTO) 7.4 % (3.0-13.0); NEUTROPHILS % (AUTO) 72.6 % (40.0-77.0); PLATELET COUNT (AUTO) 187 K/uL (130-400); RED BLOOD CELL COUNT(AUTO) 3.82 MIL/uL (4.00-5.50); RED CELL DISTRIBUTION WIDTH 13.9 % (11.0-15.5); WHITE BLOOD COUNT (AUTO) 6.8 K/uL (4.8-10.8)
[2021-01-27 20:11] LABS: CREATININE 0.6 mg/dL (0.5-1.5); POTASSIUM 3.9 mmol/L (3.5-5.1)
[2021-01-27 20:19] LABS: ALBUMIN 2.7 g/dL (3.5-5.0); BILIRUBIN,TOTAL 0.2 mg/dL (0.2-1.0); TOTAL PROTEIN, SERUM 6.1 g/dL (6.0-8.3)
[2021-01-27 20:43] LABS: INR 1.1 (0.85-1.15); PROTHROMBIN TIME 11.9 SEC (9.6-11.6)
[2021-01-27 20:45] LABS: PARTIAL THROMBOPLASTIN TIME 31.4 SEC (26.3-35.5)
[2021-01-27 21:30] LABS: APPEARANCE,URINE Cloudy (CLEAR); BILIRUBIN,URINE Negative (NEGATIVE); COLOR,URINE Yellow (YELLOW); GLUCOSE, URINE (UA) Negative (NEGATIVE); KETONES,URINE Negative (NEGATIVE); LEUKOCYTE ESTERASE ,URINE Large (NEGATIVE); NITRATE,URINE Positive (NEGATIVE); OCCULT BLOOD,URINE Large (NEGATIVE); PROTEIN,URINE Trace mg/dL (NEGATIVE)
[2021-01-27 22:01] LABS: BACTERIA,URINE Many /HPF (None Seen); RBC,URINE None Seen /HPF (0-1)
[2021-01-28] MEDS ORDERED: NITR100C4 PO (00:44)
[2021-01-28] MEDS ORDERED: CEFTRIAXONE 1G VIAL IVP ONE (01:00)
[2021-01-28 02:17] VITALS: BP 135/72
== END 2021-01-28 02:26 ==
LOC: EDH 19:06
DX: N39.0 Urinary tract infection, site not specified (principal); M25.511 Pain in right shoulder; E11.9 Type 2 diabetes mellitus without complications; E78.00 Pure hypercholesterolemia, unspecified; F03.90 Unspecified dementia, unspecified severity, without behavioral disturbance, psychotic disturbance, mood disturbance, and anxiety; I10 Essential (primary) hypertension; K21.9 Gastro-esophageal reflux disease without esophagitis; Z79.01 Long term (current) use of anticoagulants; Z79.4 Long term (current) use of insulin; Z79.52 Long term (current) use of systemic steroids; Z79.899 Other long term (current) drug therapy; Z87.891 Personal history of nicotine dependence
CPT/HCPCS: 36415; 70450; 71045; 73020; 80053; 81001; 82550; 82948; 83690; 83880; 84484; 85025; 85610; 85730; 87077; 87088; 87186; 93005; 96374; J0696

== ENCOUNTER 2022-03-13 05:15 | Emergency (ER) | payer MEDICARE ==
[~2022-03-13] VITALS: Ht 154.9 cm; Wt 72.1 kg
[~2022-03-13 05:15] MED LIST changes: +NITR100C4 PO
[2022-03-13 06:45] VITALS: BP 97/69
[2022-03-13 07:15] LABS: BASOPHILS % (AUTO) 0.4 % (0.0-5.0); EOSINOPHILS % (AUTO) 2.8 % (0.0-8.0); LYMPHOCYTES % (AUTO) 24.8 % (21.0-51.0); MEAN CORPUSCULAR HEMOGLOBIN 30.8 pg (27.0-33.0); MEAN CORPUSCULAR HGB CONC 32.8 g/dL (32.0-36.0); MEAN CORPUSCULAR VOLUME 94.1 fL (79-99); MONOCYTES % (AUTO) 7.9 % (3.0-13.0); NEUTROPHILS % (AUTO) 63.8 % (40.0-77.0); PLATELET COUNT (AUTO) 182 K/uL (130-400); RED BLOOD CELL COUNT(AUTO) 4.25 MIL/uL (4.00-5.50); RED CELL DISTRIBUTION WIDTH 13.1 % (11.0-15.5); WHITE BLOOD COUNT (AUTO) 10.3 K/uL (4.8-10.8)
[2022-03-13 07:27] LABS: INR 0.97 (0.85-1.15); PROTHROMBIN TIME 10.6 SEC (9.6-11.6)
[2022-03-13 07:29] LABS: ALBUMIN 3.5 g/dL (3.5-5.0); CREATININE 0.7 mg/dL (0.5-1.5); PARTIAL THROMBOPLASTIN TIME 28.5 SEC (26.3-35.5); POTASSIUM 3.9 mmol/L (3.5-5.1); TOTAL PROTEIN, SERUM 6.8 g/dL (6.0-8.3)
== END 2022-03-13 08:47 | disposition home or self-care (01) ==
LOC: EDH 05:15
DX: M54.50 Low back pain, unspecified (principal); E11.9 Type 2 diabetes mellitus without complications; K21.9 Gastro-esophageal reflux disease without esophagitis; E78.00 Pure hypercholesterolemia, unspecified; I10 Essential (primary) hypertension; Z79.01 Long term (current) use of anticoagulants; Z79.52 Long term (current) use of systemic steroids; W06.XXXA Fall from bed, initial encounter; Y93.89 Activity, other specified; Y92.098 Other place in other non-institutional residence as the place of occurrence of the external cause; Y99.8 Other external cause status
CPT/HCPCS: 36415; 70450; 72125; 72170; 80053; 84484; 85025; 85610; 85730; 93005